=== PATIENT | male | born 1955 | race Caucasian/White ===

== ENCOUNTER 2018-09-20 05:32 | Inpatient (IN) ==
[2018-09-15 13:21] LABS: Basophils % 0.5 % (0.0-0.8); Eosinophils # 0.2 10*3/uL (0.0-0.87); Eosinophils % 2.6 % (0.00-10.9); Hematocrit 44.8 VOL% (42.0-52.0); Hemoglobin 14.9 GM/DL (14.0-18.0); Immature Granulocytes % 0.2 %; Immature Granulocytes Absolute 0.02 #; Mean Corpuscular HGB Conc 33.3 GM/DL (32-36); Mean Corpuscular Hemoglobin 29 PG (27-34); Mean Corpuscular Volume 88.4 FL (87-102); Mean Platelet Volume 9.2 FL (9.6-12.0); Monocytes # 0.5 10*3/uL (0.11-0.8); Monocytes % 6.6 % (1.7-12.7); Neutrophils # 5.3 10*3/uL (1.4-7.4); Neutrophils % 65.1 % (38.7-73.9); Platelet Count 204 T/CUMM (130-400); Red Blood Count 5.07 MC/CUMM (3.8-5.5); Red Cell Distribution Width 13.2 % (9.3-17.3); White Blood Count 8.1 T/CUMM (4-12)
[2018-09-15 13:32] LABS: INR 0.9; PT Patient Result 9.9 SECS; Partial Thromboplastin Time 25.8 SECS (0-40)
[2018-09-15 14:01] LABS: Albumin 3.5 G/DL (3.4-5.0); Bilirubin,Total 0.6 MG/DL (0.2-1.0); Potassium 4.4 MMOL/L (3.5-5.1); Total Protein 7.3 G/DL (6.4-8.3)
[2018-09-15 14:21] LABS: Apearance,Urine CLEAR (Clear); Bilirubin,Urine Negative (Negative); Blood, Urine Negative (Negative); Glucose,Urine (UA) 50 mg/dL (Negative); Hyaline Casts,Urine 7 /LPF (0-3); Ketones,Urine Negative (Negative); Mucus,Urine Occasional /LPF (Occasional); Nitrite,Urine Negative (Negative); Protein,Urine 30 MG/DL; RBC,Urine <1 /HPF (0-4); Squamous Epithelial Cell,Urine Occasional /HPF (0-10); Urine Color Yellow (Yellow); Urine Specific Gravity 1.009 (1.001-1.035); Urine Urobilinogen < 2.0 EU/DL (0.2-1.0); WBC,Urine <1 /HPF (0-6)
[2018-09-20] MEDS ORDERED: VANCOMYCIN 1,000 MG VIAL ONE (05:55)
[2018-09-20] MEDS ORDERED: ceFAZolin 1,000 MG VIAL ONE ×2 (05:55→09:11)
[2018-09-20] MEDS ORDERED: ceFAZolin 1,000 MG in SYRINGE 1 EACH IV ONE (06:00)
[2018-09-20] MEDS ORDERED: VANCOMYCIN INJ 1,000 MG in SODIUM CHLORIDE 0.9% 250 ML IV ONE (06:00)
[2018-09-20] MEDS: LACTATED RINGERS 1,000 ML IV SCH ×3 (06:40→18:27)
[2018-09-20] MEDS ORDERED: BUPIVACAINE SPINAL 0.75% 2 ML AMP SPINAL ONE (07:46)
[2018-09-20] MEDS ORDERED: ROPIVACAINE 0.5% 30 ML VIAL ONE (07:46)
[2018-09-20] MEDS ORDERED: EPINEPHrine 1 MG/ML VIAL ONE (07:51)
[2018-09-20] MEDS ORDERED: ONDANSETRON 4 MG/2 ML VIAL IV PRN ×2 (08:52→11:22)
[2018-09-20] MEDS ORDERED: MORPHINE 4 MG/1 ML VIAL IV PRN ×2 (08:52)
[2018-09-20] MEDS ORDERED: MAGNESIUM HYDROXIDE SUSP 30 ML UDCUP PO PRN (08:52)
[2018-09-20] MEDS ORDERED: ZALEPLON 5 MG CAPSULE PO PRN (08:52)
[2018-09-20] MEDS ORDERED: oxyCODONE IR 5 MG TABLET PO PRN (08:52)
[2018-09-20] MEDS ORDERED: oxyCODONE/ACETAMINOPHEN 5-325 MG TABLET PO PRN ×2 (08:52)
[2018-09-20] MEDS ORDERED: diphenhydrAMINE CAP 25 MG CAPSULE PO PRN (08:52)
[2018-09-20] MEDS ORDERED: BACITRACIN OINT 0.9 GM PACK TOP ONE (09:11)
[2018-09-20 10:29] LABS: Apearance,Urine CLEAR (Clear); Bilirubin,Urine Negative (Negative); Blood, Urine Negative (Negative); Glucose,Urine (UA) 50 mg/dL (Negative); Ketones,Urine Negative (Negative); Mucus,Urine Occasional /LPF (Occasional); Nitrite,Urine Negative (Negative); Protein,Urine 100 MG/DL; RBC,Urine <1 /HPF (0-4); Urine Color Yellow (Yellow); Urine Specific Gravity 1.019 (1.001-1.035); Urine Urobilinogen < 2.0 EU/DL (0.2-1.0)
[2018-09-20] MEDS ORDERED: KETAMINE 500 MG/10 ML VIAL ONE (10:51)
[2018-09-20] MEDS ORDERED: TRANEXAMIC ACID 1,000 MG/10 ML VIAL ONE (10:51)
[2018-09-20] MEDS ORDERED: fentaNYL 100 MCG/2 ML VIAL ONE (10:51)
[2018-09-20] MEDS ORDERED: MIDAZOLAM 2 MG/2 ML VIAL ONE ×2 (10:51)
[2018-09-20] MEDS ORDERED: PHENYLEPHRINE 1 MG/10 ML SYRINGE IV ONE (10:52)
[2018-09-20] MEDS ORDERED: PROPOFOL 200 MG/20 ML VIAL IV ONE (10:52)
[2018-09-20] MEDS ORDERED: LACTATED RINGERS 1,000 ML IV ONE (10:52)
[2018-09-20] MEDS ORDERED: SODIUM CHLORIDE 0.9% 200 ML IV ONE (10:52)
[2018-09-20] MEDS ORDERED: MORPHINE 10 MG/1 ML VIAL ONE (11:25)
[2018-09-20] MEDS ORDERED: ONDANSETRON 4 MG/2 ML VIAL ONE (11:25)
[2018-09-20] MEDS: MORPHINE 10 MG/1 ML VIAL IV PRN ×2 (11:40→11:41)
[2018-09-20] MEDS: ceFAZolin 2,000 MG in PREMIX 1 EACH IV SCH ×2 (13:29→20:45)
[2018-09-20] MEDS: oxyCODONE IR 5 MG TABLET PO PRN ×2 (13:30→18:27)
[2018-09-20] MEDS: KETOROLAC 30 MG/1 ML VIAL IV SCH ×2 (13:31→20:50)
[2018-09-20] MEDS: ACETAMINOPHEN 500 MG TABLET PO SCH ×2 (13:32→20:54)
[2018-09-20] MEDS: FUROSEMIDE 80 MG TABLET PO SCH (13:32)
[2018-09-20] MEDS: DOCUSATE SODIUM 100 MG CAPSULE PO SCH ×2 (13:33→20:54)
[2018-09-20] MEDS: CARVEDILOL 6.25 MG TABLET PO SCH ×2 (13:33→20:54)
[2018-09-20] MEDS ORDERED: ATORVASTATIN 20 MG TABLET PO SCH (21:00)
[2018-09-20] MEDS ORDERED: amLODIPine 5 MG TABLET PO SCH (21:00)
[2018-09-20] MEDS ORDERED: INSULIN GLARGINE 100 UNIT/ML SUBCUT SCH (21:00)
[2018-09-21] MEDS: ACETAMINOPHEN 500 MG TABLET PO SCH ×2 (02:13→09:42)
[2018-09-21] MEDS: KETOROLAC 30 MG/1 ML VIAL IV SCH ×2 (02:14→09:46)
[2018-09-21] MEDS: LACTATED RINGERS 1,000 ML IV SCH ×2 (02:15→05:34)
[2018-09-21] MEDS ORDERED: FONDAPARINUX 2.5 MG/0.5 ML SYRINGE SUBCUT SCH (02:54)
[2018-09-21 05:53] LABS: Basophils % 0.4 % (0.0-0.8); Eosinophils # 0.2 10*3/uL (0.0-0.87); Hematocrit 38.2 VOL% (42.0-52.0); Hemoglobin 12.7 GM/DL (14.0-18.0); Immature Granulocytes % 0.5 %; Immature Granulocytes Absolute 0.04 #; Lymphocytes # 1.2 10*3/uL (1.4-4.0); Lymphocytes % 14.4 % (21.2-54.2); Mean Corpuscular HGB Conc 33.2 GM/DL (32-36); Mean Corpuscular Hemoglobin 30 PG (27-34); Mean Corpuscular Volume 89.5 FL (87-102); Mean Platelet Volume 9.7 FL (9.6-12.0); Monocytes # 0.7 10*3/uL (0.11-0.8); Monocytes % 8.2 % (1.7-12.7); Neutrophils # 6.2 10*3/uL (1.4-7.4); Neutrophils % 74.5 % (38.7-73.9); Platelet Count 148 T/CUMM (130-400); Red Blood Count 4.27 MC/CUMM (3.8-5.5); Red Cell Distribution Width 13.1 % (9.3-17.3); White Blood Count 8.3 T/CUMM (4-12)
[2018-09-21 06:00] LABS: Calcium 7.4 MG/DL (8.5-10.1); Osmolality,Calculated 280.5 MOS/KG (273-304); Potassium 4.2 MMOL/L (3.5-5.1)
[2018-09-21] MEDS ORDERED: ASPIRIN EC 81 MG TABLET PO SCH (09:00)
[2018-09-21] MEDS ORDERED: ACETAMINOPHEN 500 MG TABLET PO SCH (09:30)
[2018-09-21] MEDS ORDERED: KETOROLAC 30 MG/1 ML VIAL IV SCH (09:30)
[2018-09-21] MEDS: CARVEDILOL 6.25 MG TABLET PO SCH (09:44)
[2018-09-21] MEDS: FUROSEMIDE 80 MG TABLET PO SCH (09:44)
[2018-09-21] MEDS: DOCUSATE SODIUM 100 MG CAPSULE PO SCH (09:44)
[2018-09-21 11:28] VITALS: BP 143/101
[2018-09-21] MEDS ORDERED: CELECOXIB 200 MG CAPSULE PO SCH (14:53)
== END 2018-09-21 15:40 | disposition home health service (06) | DRG 468 ==
LOC: N.OR 05:32 → N.SDSINP 05:33 → N.3E 08:52
PROVIDERS: ADMIT Orthopaedic Surgery; ATTEND Orthopaedic Surgery

== ENCOUNTER 2021-03-10 16:53 | Inpatient (IN) ==
[2021-03-10] MEDS ORDERED: SODIUM CHLORIDE 0.9% 500 ML IV STA (17:10)
[2021-03-10 17:20] LABS: Basophils # 0.1 10*3/uL (0.0-0.2); Basophils % 0.4 % (0.0-0.8); Hematocrit 53.7 VOL% (42.0-52.0); Hemoglobin 17.6 GM/DL (14.0-18.0); Immature Granulocytes Absolute 0.14 #; Lymphocytes # 0.2 10*3/uL (1.4-4.0); Lymphocytes % 1.1 % (21.2-54.2); Mean Corpuscular HGB Conc 32.8 GM/DL (32-36); Mean Corpuscular Volume 88.2 FL (87-102); Mean Platelet Volume 10.1 FL (9.6-12.0); Monocytes % 3.6 % (1.7-12.7); Neutrophils % 93.9 % (38.7-73.9); Platelet Count 122 T/CUMM (130-400); Red Blood Count 6.09 MC/CUMM (3.8-5.5); Red Cell Distribution Width 13.9 % (9.3-17.3); White Blood Count 14.2 T/CUMM (4-12)
[2021-03-10 17:39] LABS: Band Neutrophils 5 % (0-10); Metamyelocytes 2 %; Microcytosis Slight; Segmented Neutrophils 93 % (50-85); Total Cells Counted 100
[2021-03-10 17:40] LABS: Platelet Estimate Decreased; Polychromasia Slight
[2021-03-10 17:45] LABS: Albumin 3.2 G/DL (3.4-5.0); Bilirubin,Total 3.6 MG/DL (0.2-1.0); Calcium 9.3 MG/DL (8.5-10.1); Osmolality,Calculated 280.2 MOS/KG (273-304); Potassium 4.2 MMOL/L (3.5-5.1)
[2021-03-10 17:50] LABS: Amorphous Crystals,Urine Occasional /HPF (Few); Bilirubin,Urine Negative (Negative); Blood, Urine Large mg/dL (Negative); Glucose,Urine (UA) >=500 mg/dL (Negative); Ketones,Urine Negative (Negative); Nitrite,Urine Negative (Negative); Protein,Urine 100 MG/DL; RBC,Urine 18 /HPF (0-4); Squamous Epithelial Cell,Urine Occasional /HPF (0-10); Urine Appearance CLOUDY (Clear); Urine Color Amber (Yellow); Urine Specific Gravity 1.026 (1.001-1.035)
[2021-03-10 17:53] LABS: Barbiturates Screen,Urine Negative (Negative); Benzodiazepines Screen,Urine Negative (Negative); Cannabinoid Screen,Urine Negative (Negative); Opiate Screen,Urine Negative (Negative); Phencyclidine Screen,Urine Negative (Negative)
[2021-03-10] MEDS ORDERED: LACTATED RINGERS IV ONE (19:09)
[2021-03-10] MEDS ORDERED: ALBUTEROL 2.5 MG/3 ML NEB RESP TX PRN (19:09)
[2021-03-10] MEDS ORDERED: ONDANSETRON 4 MG/2 ML VIAL IV PRN (19:09)
[2021-03-10] MEDS ORDERED: GLUCAGON 1 MG VIAL IM PRN (19:17)
[2021-03-10] MEDS ORDERED: DEXTROSE 50% 25 GM/50 ML VIAL IV PRN (19:17)
[2021-03-10] MEDS ORDERED: LEVOFLOXACIN INJ 750 MG/150 ML PREMIX IV SCH (19:30)
[2021-03-10 20:37] LABS: ABG Base Excess -0.7 MMOL/L (-2.5-2.5); ABG HCO3 23.8 MMOL/L (20-26); ABG Oxygen Saturation 98.3 % (95-100); ABG PCO2 27.3 MM HG (35-48); ABG PO2 98.3 MM HG (80-95); Allen Test Positive
[2021-03-10] MEDS ORDERED: ENOXAPARIN 30 MG/0.3 ML SYRINGE SUBCUT SCH (21:00)
[2021-03-10] MEDS: cefTRIAXone 2,000 MG in SODIUM CHLORIDE 0.9% 100 ML IV SCH (21:20)
[2021-03-10] MEDS: PANTOPRAZOLE 40 MG VIAL IV SCH (21:20)
[2021-03-10] MEDS ORDERED: LACTATED RINGERS 3,000 ML IV ONE (21:30)
[2021-03-10] MEDS ORDERED: ACETAMINOPHEN 650 MG SUPP RECTAL ONE ×2 (21:30→21:44)
[2021-03-10] MEDS: DEXTROSE 5% LACTATED RINGERS 1,000 ML IV SCH (22:40)
[2021-03-10] MEDS ORDERED: VANCOMYCIN INJ 2,000 MG in SODIUM CHLORIDE 0.9% 500 ML IV SCH (23:00)
[2021-03-10 23:11] LABS: ABG Base Excess -1.2 MMOL/L (-2.5-2.5); ABG HCO3 23.4 MMOL/L (20-26); ABG Oxygen Saturation 97.3 % (95-100); ABG PCO2 28.7 MM HG (35-48); ABG PH 7.471 (7.35-7.45); ABG PO2 85.2 MM HG (80-95); ABG TCO2 17.5 MMOL/L (23-27)
[2021-03-10] MEDS ORDERED: ETOMIDATE 20 MG/10 ML VIAL IV ONE ×2 (23:22→23:29)
[2021-03-10] MEDS ORDERED: ROCURONIUM 100 MG/10 ML VIAL IV ONE ×2 (23:23→23:29)
[2021-03-10] MEDS ORDERED: ENOXAPARIN 120 MG/0.8 ML SYRINGE SUBCUT ONE (23:30)
[2021-03-10] MEDS ORDERED: METOPROLOL TARTRATE 5 MG/5 ML VIAL IV ONE ×2 (23:41→23:48)
[2021-03-11] MEDS: INSULIN LISPRO 100 UNIT/ML SUBCUT SCH ×6 (00:22→20:44)
[2021-03-11 00:24] LABS: ABG Base Excess -3.6 MMOL/L (-2.5-2.5); ABG Oxygen Saturation 98.9 % (95-100); ABG PCO2 46.9 MM HG (35-48); ABG PH 7.308 (7.35-7.45); ABG PO2 175.9 MM HG (80-95); ABG TCO2 24.4 MMOL/L (23-27)
[2021-03-11 00:44] LABS: Albumin 2.2 G/DL (3.4-5.0); Bilirubin,Total 2.9 MG/DL (0.2-1.0); Calcium 7.3 MG/DL (8.5-10.1); Osmolality,Calculated 289.7 MOS/KG (273-304); Potassium 3.8 MMOL/L (3.5-5.1)
[2021-03-11] MEDS ORDERED: MAGNESIUM SULF RIDER 2 GM/50 ML PREMIX IV PRN (00:58)
[2021-03-11] MEDS ORDERED: MAGNESIUM SULF RIDER 4 GM/100 ML PREMIX IV PRN (00:58)
[2021-03-11] MEDS: DEXTROSE 5% LACTATED RINGERS 1,000 ML IV SCH ×3 (02:36→18:08)
[2021-03-11] MEDS: PHENYLEPHRINE DRIP 40 MG/250 ML PREMIX IV PRN ×6 (03:40→21:09)
[2021-03-11 05:08] LABS: Basophils # 0.1 10*3/uL (0.0-0.2); Basophils % 0.3 % (0.0-0.8); Hematocrit 51.5 VOL% (42.0-52.0); Hemoglobin 16.4 GM/DL (14.0-18.0); Immature Granulocytes % 2.2 %; Lymphocytes # 0.4 10*3/uL (1.4-4.0); Mean Corpuscular HGB Conc 31.8 GM/DL (32-36); Mean Corpuscular Volume 90.7 FL (87-102); Mean Platelet Volume 11.3 FL (9.6-12.0); Monocytes % 4.2 % (1.7-12.7); Neutrophils % 91.3 % (38.7-73.9); Red Blood Count 5.68 MC/CUMM (3.8-5.5); Red Cell Distribution Width 14.2 % (9.3-17.3)
[2021-03-11 05:15] LABS: INR 1.3
[2021-03-11 05:37] LABS: Albumin 2.3 G/DL (3.4-5.0); Bilirubin,Total 3.8 MG/DL (0.2-1.0); Calcium 8.6 MG/DL (8.5-10.1); Osmolality,Calculated 279.8 MOS/KG (273-304); Potassium 4.6 MMOL/L (3.5-5.1); Total Protein 6.2 G/DL (6.4-8.2)
[2021-03-11 05:45] LABS: Platelet Count 87 T/CUMM (130-400); White Blood Count 18.6 T/CUMM (4-12)
[2021-03-11 05:51] LABS: Band Neutrophils 11 % (0-10); Lymphocytes 3 % (20-55); Platelet Estimate Decreased; Segmented Neutrophils 82 % (50-85); Total Cells Counted 100
[2021-03-11] MEDS ORDERED: ACYCLOVIR INJ 800 MG in SODIUM CHLORIDE 0.9% 250 ML IV SCH (09:00)
[2021-03-11] MEDS: INSULIN GLARGINE 100 UNIT/ML SUBCUT SCH (09:40)
[2021-03-11] MEDS: cefTRIAXone 2,000 MG in SODIUM CHLORIDE 0.9% 100 ML IV SCH ×2 (09:40→21:17)
[2021-03-11] MEDS: RIFAMPIN INJ 600 MG in SODIUM CHLORIDE 0.9% 100 ML IV SCH (12:36)
[2021-03-11] MEDS: PHENYLEPHRINE INJ 80 MG in SODIUM CHLORIDE 0.9% 242 ML IV PRN ×2 (13:39→18:05)
[2021-03-11] MEDS ORDERED: MIDAZOLAM 100 MG in SODIUM CHLORIDE 0.9% 80 ML IV PRN (18:00)
[2021-03-11] MEDS ORDERED: ACETAMINOPHEN 325 MG TABLET ONE (18:02)
[2021-03-11] MEDS: ACETAMINOPHEN 325 MG TABLET PO PRN (18:40)
[2021-03-11] MEDS: PANTOPRAZOLE 40 MG VIAL IV SCH (20:45)
[2021-03-11] MEDS ORDERED: PHENYLEPHRINE INJ 160 MG in SODIUM CHLORIDE 0.9% 234 ML IV PRN (21:37)
[2021-03-11 21:56] LABS: ABG Base Excess -4.8 MMOL/L (-2.5-2.5); ABG HCO3 20.6 MMOL/L (20-26); ABG Oxygen Saturation 99.4 % (95-100); ABG PCO2 32.2 MM HG (35-48); ABG PH 7.384 (7.35-7.45); ABG TCO2 16.3 MMOL/L (23-27)
[2021-03-11 22:09] LABS: Albumin 1.9 G/DL (3.4-5.0); Bilirubin,Total 4.3 MG/DL (0.2-1.0); Calcium 8.1 MG/DL (8.5-10.1); Potassium 4.2 MMOL/L (3.5-5.1); Total Protein 5.5 G/DL (6.4-8.2)
[2021-03-11] MEDS: PHENYLEPHRINE INJ 80 MG in SODIUM CHLORIDE 0.9% 492 ML IV PRN (22:39)
[2021-03-11] MEDS ORDERED: ALBUMIN 25% 25 GM/100 ML VIAL IV ONE (22:48)
[2021-03-12] MEDS ORDERED: ENOXAPARIN 150 MG/ML SYRINGE SUBCUT SCH
[2021-03-12] MEDS: ACETAMINOPHEN 325 MG TABLET PO PRN (00:30)
[2021-03-12] MEDS: INSULIN LISPRO 100 UNIT/ML SUBCUT SCH ×6 (00:46→20:14)
[2021-03-12] MEDS: PHENYLEPHRINE INJ 80 MG in SODIUM CHLORIDE 0.9% 492 ML IV PRN ×6 (01:18→21:01)
[2021-03-12] MEDS: DEXTROSE 5% LACTATED RINGERS 1,000 ML IV SCH ×3 (01:45→18:06)
[2021-03-12 06:10] LABS: ABG HCO3 19.7 MMOL/L (20-26); ABG Oxygen Saturation 99.2 % (95-100); ABG PCO2 35.5 MM HG (35-48); ABG PH 7.361 (7.35-7.45); ABG PO2 206.7 MM HG (80-95); ABG TCO2 20.7 MMOL/L (23-27)
[2021-03-12 06:18] LABS: Basophils # 0.1 10*3/uL (0.0-0.2); Basophils % 0.2 % (0.0-0.8); Eosinophils % 0.1 % (0.00-10.9); Hematocrit 43.8 VOL% (42.0-52.0); Hemoglobin 14.4 GM/DL (14.0-18.0); Immature Granulocytes % 0.8 %; Immature Granulocytes Absolute 0.17 #; Lymphocytes # 0.8 10*3/uL (1.4-4.0); Lymphocytes % 4.2 % (21.2-54.2); Mean Corpuscular HGB Conc 32.9 GM/DL (32-36); Mean Corpuscular Volume 87.6 FL (87-102); Mean Platelet Volume 11.8 FL (9.6-12.0); Monocytes % 8.1 % (1.7-12.7); Neutrophils % 86.6 % (38.7-73.9); Platelet Count 70 T/CUMM (130-400); Red Cell Distribution Width 14.8 % (9.3-17.3); White Blood Count 20.1 T/CUMM (4-12)
[2021-03-12 06:36] LABS: Band Neutrophils 2 % (0-10); Lymphocytes 2 % (20-55); Platelet Estimate Decreased; Segmented Neutrophils 91 % (50-85); Total Cells Counted 100
[2021-03-12 07:01] LABS: Albumin 1.9 G/DL (3.4-5.0); Bilirubin,Total 3.7 MG/DL (0.2-1.0); Calcium 7.3 MG/DL (8.5-10.1); Osmolality,Calculated 293.7 MOS/KG (273-304); Potassium 3.8 MMOL/L (3.5-5.1); Total Protein 4.9 G/DL (6.4-8.2)
[2021-03-12 07:03] LABS: High Sensitive Troponin I* 9606.2 ng/L (0-78)
[2021-03-12] MEDS: cefTRIAXone 2,000 MG in SODIUM CHLORIDE 0.9% 100 ML IV SCH ×2 (08:22→20:14)
[2021-03-12] MEDS: FAMOTIDINE 20 MG/2 ML VIAL IV SCH (08:23)
[2021-03-12] MEDS: INSULIN GLARGINE 100 UNIT/ML SUBCUT SCH (08:23)
[2021-03-12] MEDS ORDERED: VANCOMYCIN INJ 2,000 MG in SODIUM CHLORIDE 0.9% 500 ML IV ONE (08:30)
[2021-03-12] MEDS ORDERED: POTASSIUM PHOSPHATE 20 MMOL in SODIUM CHLORIDE 0.9% 100 ML IV ONE (10:00)
[2021-03-12] MEDS: RIFAMPIN INJ 600 MG in SODIUM CHLORIDE 0.9% 100 ML IV SCH (12:30)
[2021-03-12] MEDS ORDERED: LEVOFLOXACIN INJ 750 MG/150 ML PREMIX IV SCH (20:00)
[2021-03-13] MEDS: INSULIN LISPRO 100 UNIT/ML SUBCUT SCH ×7 (00:32→23:30)
[2021-03-13] MEDS: DEXTROSE 5% LACTATED RINGERS 1,000 ML IV SCH ×3 (01:10→22:05)
[2021-03-13 03:36] LABS: ABG Base Excess -6.8 MMOL/L (-2.5-2.5); ABG HCO3 18.6 MMOL/L (20-26); ABG PH 7.319 (7.35-7.45); ABG PO2 207.4 MM HG (80-95); ABG TCO2 19.7 MMOL/L (23-27)
[2021-03-13 03:38] LABS: Basophils % 0.2 % (0.0-0.8); Eosinophils % 0.3 % (0.00-10.9); Hematocrit 39.7 VOL% (42.0-52.0); Immature Granulocytes % 0.7 %; Lymphocytes # 0.7 10*3/uL (1.4-4.0); Lymphocytes % 4.8 % (21.2-54.2); Mean Corpuscular HGB Conc 32.7 GM/DL (32-36); Mean Corpuscular Volume 88.6 FL (87-102); Mean Platelet Volume 12.3 FL (9.6-12.0); Monocytes % 8.6 % (1.7-12.7); Neutrophils % 85.4 % (38.7-73.9); Red Blood Count 4.48 MC/CUMM (3.8-5.5); Red Cell Distribution Width 15.2 % (9.3-17.3)
[2021-03-13 03:39] LABS: Platelet Count 46 T/CUMM (130-400); White Blood Count 13.8 T/CUMM (4-12)
[2021-03-13 03:52] LABS: Albumin 1.8 G/DL (3.4-5.0); Bilirubin,Total 3.1 MG/DL (0.2-1.0); Calcium 7.8 MG/DL (8.5-10.1); Osmolality,Calculated 294.8 MOS/KG (273-304); Potassium 4.6 MMOL/L (3.5-5.1); Total Protein 5.1 G/DL (6.4-8.2)
[2021-03-13 04:16] LABS: Band Neutrophils 1 % (0-10); Eosinophils 1 % (0-10); Lymphocytes 6 % (20-55); Segmented Neutrophils 81 % (50-85)
[2021-03-13 04:17] LABS: Burr Cells 3+; Platelet Estimate Decreased
[2021-03-13 04:18] LABS: Total Cells Counted 100
[2021-03-13] MEDS: PHENYLEPHRINE INJ 80 MG in SODIUM CHLORIDE 0.9% 492 ML IV PRN ×3 (05:02→20:53)
[2021-03-13] MEDS ORDERED: INSULIN GLARGINE 100 UNIT/ML SUBCUT ONE (10:12)
[2021-03-13] MEDS: INSULIN GLARGINE 100 UNIT/ML SUBCUT SCH (10:13)
[2021-03-13] MEDS: cefTRIAXone 2,000 MG in SODIUM CHLORIDE 0.9% 100 ML IV SCH (10:52)
[2021-03-13] MEDS: FAMOTIDINE 20 MG/2 ML VIAL IV SCH (10:53)
[2021-03-13] MEDS: RIFAMPIN INJ 600 MG in SODIUM CHLORIDE 0.9% 100 ML IV SCH ×2 (11:50→13:19)
[2021-03-13 13:05] LABS: Glucose,CSF 94 MG/DL (40-70)
[2021-03-13 14:08] LABS: Lymphocytes,CSF 5 %; Monocytes,CSF 2 %; Neutrophils,CSF 93 %; White Blood Cell,CSF 212 C/CUMM
[2021-03-13 14:09] LABS: Appearance,CSF Clear
[2021-03-13] MEDS: CLINDAMYCIN INJ 600 MG/50 ML PREMIX IV SCH ×2 (15:32→21:15)
[2021-03-13 15:59] LABS: Hepatitis B Core IgM Quant 0.18 Index; Hepatitis B Surface Ag Quant < 0.10 Index; Hepatitis B Surface Ag Result Non-Reactive (NonReactive); Hepatitis C Virus Ab Quant 0.16 Index; Hepatitis C Virus Ab Result Non-Reactive (NonReactive)
[2021-03-13] MEDS: ASPIRIN CHEW 81 MG TABLET PO SCH (16:59)
[2021-03-13] MEDS ORDERED: HEPARIN 10,000 UNIT/10 ML VIAL IV SCH (22:00)
[2021-03-14] MEDS: INSULIN LISPRO 100 UNIT/ML SUBCUT SCH ×3 (03:41→17:13)
[2021-03-14 04:09] LABS: ABG HCO3 20.3 MMOL/L (20-26); ABG Oxygen Saturation 99.2 % (95-100); ABG PH 7.264 (7.35-7.45)
[2021-03-14 04:30] LABS: Basophils % 0.2 % (0.0-0.8); Eosinophils # 0.1 10*3/uL (0.0-0.87); Eosinophils % 1.1 % (0.00-10.9); Hematocrit 41.6 VOL% (42.0-52.0); Hemoglobin 13.6 GM/DL (14.0-18.0); Immature Granulocytes % 1.9 %; Immature Granulocytes Absolute 0.22 #; Lymphocytes # 0.7 10*3/uL (1.4-4.0); Lymphocytes % 6.4 % (21.2-54.2); Mean Corpuscular HGB Conc 32.7 GM/DL (32-36); Mean Corpuscular Volume 89.7 FL (87-102); Mean Platelet Volume 13.6 FL (9.6-12.0); Monocytes % 11.9 % (1.7-12.7); Neutrophils % 78.5 % (38.7-73.9); Red Blood Count 4.64 MC/CUMM (3.8-5.5); Red Cell Distribution Width 15.8 % (9.3-17.3); White Blood Count 11.5 T/CUMM (4-12)
[2021-03-14 04:32] LABS: Platelet Count 36 T/CUMM (130-400)
[2021-03-14 05:01] LABS: Eosinophils 3 % (0-10); Lymphocytes 9 % (20-55); Platelet Estimate Decreased; Segmented Neutrophils 82 % (50-85); Total Cells Counted 100
[2021-03-14 05:07] LABS: Calcium 7.5 MG/DL (8.5-10.1); Osmolality,Calculated 296.5 MOS/KG (273-304); Potassium 4.9 MMOL/L (3.5-5.1)
[2021-03-14 05:09] LABS: Albumin 1.8 G/DL (3.4-5.0); Bilirubin,Total 2.8 MG/DL (0.2-1.0); Calcium 7.6 MG/DL (8.5-10.1); Osmolality,Calculated 294.7 MOS/KG (273-304); Potassium 4.8 MMOL/L (3.5-5.1); Total Protein 5.3 G/DL (6.4-8.2)
[2021-03-14] MEDS: CLINDAMYCIN INJ 600 MG/50 ML PREMIX IV SCH ×4 (05:30→21:14)
[2021-03-14] MEDS: DEXTROSE 5% LACTATED RINGERS 1,000 ML IV SCH (06:11)
[2021-03-14] MEDS: FAMOTIDINE 20 MG/2 ML VIAL IV SCH (08:54)
[2021-03-14] MEDS: ASPIRIN CHEW 81 MG TABLET PO SCH (08:54)
[2021-03-14] MEDS: INSULIN GLARGINE 100 UNIT/ML SUBCUT SCH (08:54)
[2021-03-14] MEDS: PHENYLEPHRINE INJ 80 MG in SODIUM CHLORIDE 0.9% 492 ML IV PRN (10:15)
[2021-03-14] MEDS: RIFAMPIN INJ 600 MG in SODIUM CHLORIDE 0.9% 100 ML IV SCH (12:06)
[2021-03-15] MEDS: INSULIN LISPRO 100 UNIT/ML SUBCUT SCH ×4 (00:06→18:15)
[2021-03-15] MEDS: PHENYLEPHRINE INJ 80 MG in SODIUM CHLORIDE 0.9% 492 ML IV PRN (00:08)
[2021-03-15 04:52] LABS: ABG Base Excess -5.5 MMOL/L (-2.5-2.5); ABG Oxygen Saturation 99.2 % (95-100); ABG PCO2 43.9 MM HG (35-48); ABG PH 7.291 (7.35-7.45); ABG TCO2 18.6 MMOL/L (23-27)
[2021-03-15 04:53] LABS: Basophils % 0.3 % (0.0-0.8); Eosinophils # 0.2 10*3/uL (0.0-0.87); Eosinophils % 1.5 % (0.00-10.9); Hematocrit 41.7 VOL% (42.0-52.0); Hemoglobin 13.3 GM/DL (14.0-18.0); Immature Granulocytes % 1.5 %; Immature Granulocytes Absolute 0.19 #; Lymphocytes # 0.7 10*3/uL (1.4-4.0); Lymphocytes % 5.9 % (21.2-54.2); Mean Corpuscular HGB Conc 31.9 GM/DL (32-36); Mean Corpuscular Volume 90.3 FL (87-102); Mean Platelet Volume 12.2 FL (9.6-12.0); Monocytes % 11.6 % (1.7-12.7); Neutrophils % 79.2 % (38.7-73.9); Red Blood Count 4.62 MC/CUMM (3.8-5.5); Red Cell Distribution Width 15.9 % (9.3-17.3); White Blood Count 12.6 T/CUMM (4-12)
[2021-03-15 04:56] LABS: Platelet Count 62 T/CUMM (130-400)
[2021-03-15 05:08] LABS: Albumin 1.6 G/DL (3.4-5.0); Bilirubin,Total 2.6 MG/DL (0.2-1.0); Calcium 7.8 MG/DL (8.5-10.1); Osmolality,Calculated 296.7 MOS/KG (273-304); Potassium 4.9 MMOL/L (3.5-5.1); Total Protein 5.3 G/DL (6.4-8.2)
[2021-03-15 05:13] LABS: Eosinophils 1 % (0-10); Lymphocytes 8 % (20-55); Platelet Estimate Decreased; Segmented Neutrophils 84 % (50-85); Total Cells Counted 100
[2021-03-15] MEDS: CLINDAMYCIN INJ 600 MG/50 ML PREMIX IV SCH ×3 (05:57→21:20)
[2021-03-15] MEDS: INSULIN GLARGINE 100 UNIT/ML SUBCUT SCH (09:08)
[2021-03-15] MEDS: ASPIRIN CHEW 81 MG TABLET PO SCH (09:08)
[2021-03-15] MEDS: FAMOTIDINE 20 MG/2 ML VIAL IV SCH (09:09)
[2021-03-15] MEDS: RIFAMPIN INJ 600 MG in SODIUM CHLORIDE 0.9% 100 ML IV SCH (12:02)
[2021-03-15] MEDS: ACETAMINOPHEN 325 MG TABLET PO PRN (19:51)
[2021-03-15] MEDS: fentaNYL 100 MCG/2 ML VIAL IV PRN (22:13)
[2021-03-16] MEDS: INSULIN LISPRO 100 UNIT/ML SUBCUT SCH ×4 (00:32→17:52)
[2021-03-16 04:14] LABS: ABG Base Excess -7.1 MMOL/L (-2.5-2.5); ABG HCO3 18.7 MMOL/L (20-26); ABG Oxygen Saturation 98.2 % (95-100); ABG PCO2 40.9 MM HG (35-48); ABG PH 7.283 (7.35-7.45); ABG TCO2 17.2 MMOL/L (23-27)
[2021-03-16 04:22] LABS: Basophils % 0.3 % (0.0-0.8); Eosinophils # 0.1 10*3/uL (0.0-0.87); Eosinophils % 0.8 % (0.00-10.9); Hematocrit 39.3 VOL% (42.0-52.0); Immature Granulocytes % 1.2 %; Immature Granulocytes Absolute 0.15 #; Lymphocytes # 0.6 10*3/uL (1.4-4.0); Lymphocytes % 5.1 % (21.2-54.2); Mean Corpuscular HGB Conc 33.1 GM/DL (32-36); Mean Corpuscular Volume 88.3 FL (87-102); Mean Platelet Volume 11.8 FL (9.6-12.0); Monocytes % 8.7 % (1.7-12.7); Neutrophils % 83.9 % (38.7-73.9); Platelet Count 82 T/CUMM (130-400); Red Blood Count 4.45 MC/CUMM (3.8-5.5); Red Cell Distribution Width 15.7 % (9.3-17.3); White Blood Count 12.3 T/CUMM (4-12)
[2021-03-16 04:50] LABS: Calcium 7.7 MG/DL (8.5-10.1); Osmolality,Calculated 309.8 MOS/KG (273-304); Potassium 5.5 MMOL/L (3.5-5.1)
[2021-03-16 04:55] LABS: Lymphocytes 3 % (20-55); Platelet Estimate Decreased; Segmented Neutrophils 87 % (50-85); Total Cells Counted 100
[2021-03-16] MEDS: CLINDAMYCIN INJ 600 MG/50 ML PREMIX IV SCH ×3 (05:35→21:08)
[2021-03-16] MEDS: fentaNYL 100 MCG/2 ML VIAL IV PRN (05:56)
[2021-03-16] MEDS: ASPIRIN CHEW 81 MG TABLET PO SCH (08:01)
[2021-03-16] MEDS: FAMOTIDINE 20 MG/2 ML VIAL IV SCH (08:01)
[2021-03-16] MEDS: INSULIN GLARGINE 100 UNIT/ML SUBCUT SCH (08:01)
[2021-03-16] MEDS ORDERED: VANCOMYCIN INJ 1,250 MG in SODIUM CHLORIDE 0.9% 250 ML IV PRN (09:02)
[2021-03-16] MEDS: RIFAMPIN INJ 600 MG in SODIUM CHLORIDE 0.9% 100 ML IV SCH (12:23)
[2021-03-16] MEDS ORDERED: VANCOMYCIN INJ 1,250 MG in SODIUM CHLORIDE 0.9% 250 ML IV ONE (17:00)
[2021-03-16 20:56] LABS: Enterovirus PCR Source CSF
[2021-03-17] MEDS: INSULIN LISPRO 100 UNIT/ML SUBCUT SCH ×4 (00:25→18:06)
[2021-03-17 04:27] LABS: Allen Test Positive; Pt O2 Delivery Device Ventilator
[2021-03-17 04:30] LABS: ABG Base Excess -5.9 MMOL/L (-2.5-2.5); ABG HCO3 19.6 MMOL/L (20-26); ABG Oxygen Saturation 97.2 % (95-100); ABG PH 7.278 (7.35-7.45); ABG PO2 99.5 MM HG (80-95); ABG TCO2 18.6 MMOL/L (23-27)
[2021-03-17 05:03] LABS: Calcium 7.8 MG/DL (8.5-10.1); Potassium 5.6 MMOL/L (3.5-5.1)
[2021-03-17] MEDS: CLINDAMYCIN INJ 600 MG/50 ML PREMIX IV SCH (06:05)
[2021-03-17] MEDS: INSULIN GLARGINE 100 UNIT/ML SUBCUT SCH (09:22)
[2021-03-17] MEDS: ASPIRIN CHEW 81 MG TABLET PO SCH (09:22)
[2021-03-17] MEDS: FAMOTIDINE 20 MG/2 ML VIAL IV SCH (09:23)
[2021-03-17 10:48] LABS: M. Tuberculosis PCR Result Negative (Negative); M. Tuberculosis PCR Source CSF
[2021-03-17] MEDS: CEFTAROLINE 200 MG in SODIUM CHLORIDE 0.9% 100 ML IV SCH ×2 (10:57→23:05)
[2021-03-17 11:41] LABS: VDRL Spinal Fluid Negative (Negative)
[2021-03-17 12:26] LABS: West Nile Virus Ab, IgG, CSF Negative (Negative); West Nile Virus Ab, IgM, CSF Negative (Negative)
[2021-03-17 13:10] LABS: Adenovirus PCR Negative (Negative); Specimen Source CSF
[2021-03-17 14:07] LABS: CMV PCR Source CSF; Epstein-Barr Virus Result Negative (Negative); Epstein-Barr Virus Source CSF; Specimen Source CSF
[2021-03-17] MEDS ORDERED: SODIUM BICARBONATE 50 MEQ/50 ML VIAL IV ONE (14:47)
[2021-03-18] MEDS: INSULIN LISPRO 100 UNIT/ML SUBCUT SCH ×4 (00:20→18:45)
[2021-03-18 04:46] LABS: Allen Test Positive; Pt O2 Delivery Device Ventilator
[2021-03-18 04:50] LABS: ABG Base Excess -5.8 MMOL/L (-2.5-2.5); ABG HCO3 19.7 MMOL/L (20-26); ABG Oxygen Saturation 97.7 % (95-100); ABG PCO2 40.2 MM HG (35-48); ABG PH 7.309 (7.35-7.45); ABG TCO2 17.8 MMOL/L (23-27)
[2021-03-18 06:09] LABS: Basophils # 0.1 10*3/uL (0.0-0.2); Basophils % 0.3 % (0.0-0.8); Eosinophils # 0.2 10*3/uL (0.0-0.87); Hematocrit 39.3 VOL% (42.0-52.0); Hemoglobin 13.1 GM/DL (14.0-18.0); Immature Granulocytes % 1.2 %; Immature Granulocytes Absolute 0.22 #; Lymphocytes # 0.6 10*3/uL (1.4-4.0); Lymphocytes % 3.2 % (21.2-54.2); Mean Corpuscular HGB Conc 33.3 GM/DL (32-36); Mean Corpuscular Volume 87.9 FL (87-102); Mean Platelet Volume 11.7 FL (9.6-12.0); Monocytes % 5.3 % (1.7-12.7); Red Blood Count 4.47 MC/CUMM (3.8-5.5); Red Cell Distribution Width 15.3 % (9.3-17.3); White Blood Count 18.8 T/CUMM (4-12)
[2021-03-18 06:16] LABS: Platelet Count 195 T/CUMM (130-400)
[2021-03-18 06:29] LABS: Lymphocytes 6 % (20-55); Platelet Estimate Normal; Segmented Neutrophils 89 % (50-85); Total Cells Counted 100
[2021-03-18 06:32] LABS: Calcium 7.6 MG/DL (8.5-10.1); Osmolality,Calculated 317.8 MOS/KG (273-304); Potassium 5.4 MMOL/L (3.5-5.1)
[2021-03-18] MEDS: ASPIRIN CHEW 81 MG TABLET PO SCH (10:18)
[2021-03-18] MEDS: INSULIN GLARGINE 100 UNIT/ML SUBCUT SCH (10:19)
[2021-03-18] MEDS: FAMOTIDINE 20 MG/2 ML VIAL IV SCH (10:51)
[2021-03-18] MEDS ORDERED: VANCOMYCIN INJ 1,250 MG in SODIUM CHLORIDE 0.9% 250 ML IV ONE (13:00)
[2021-03-18] MEDS: CEFTAROLINE 200 MG in SODIUM CHLORIDE 0.9% 100 ML IV SCH ×2 (13:02→22:20)
[2021-03-19] MEDS: INSULIN LISPRO 100 UNIT/ML SUBCUT SCH ×4 (00:33→18:10)
[2021-03-19 03:10] LABS: ABG Base Excess -4.3 MMOL/L (-2.5-2.5); ABG HCO3 20.9 MMOL/L (20-26); ABG Oxygen Saturation 98.5 % (95-100); ABG PCO2 38.1 MM HG (35-48); ABG PH 7.348 (7.35-7.45); ABG TCO2 18.6 MMOL/L (23-27); Allen Test Positive; Pt O2 Delivery Device Ventilator
[2021-03-19 04:52] LABS: Basophils % 0.2 % (0.0-0.8); Eosinophils # 0.2 10*3/uL (0.0-0.87); Eosinophils % 0.9 % (0.00-10.9); Hematocrit 37.5 VOL% (42.0-52.0); Hemoglobin 12.2 GM/DL (14.0-18.0); Immature Granulocytes Absolute 0.17 #; Lymphocytes # 0.7 10*3/uL (1.4-4.0); Lymphocytes % 3.8 % (21.2-54.2); Mean Corpuscular HGB Conc 32.5 GM/DL (32-36); Mean Corpuscular Volume 88.9 FL (87-102); Mean Platelet Volume 11.5 FL (9.6-12.0); Neutrophils % 88.1 % (38.7-73.9); Platelet Count 211 T/CUMM (130-400); Red Blood Count 4.22 MC/CUMM (3.8-5.5); Red Cell Distribution Width 15.3 % (9.3-17.3); White Blood Count 17.8 T/CUMM (4-12)
[2021-03-19 05:07] LABS: Calcium 7.7 MG/DL (8.5-10.1); Osmolality,Calculated 316.7 MOS/KG (273-304); Potassium 5.1 MMOL/L (3.5-5.1)
[2021-03-19 05:21] LABS: Hypochromasia 1+; Lymphocytes 2 % (20-55); Segmented Neutrophils 94 % (50-85); Total Cells Counted 100
[2021-03-19 05:22] LABS: Microcytosis Slight; Platelet Estimate Normal
[2021-03-19] MEDS: ASPIRIN CHEW 81 MG TABLET PO SCH (08:55)
[2021-03-19] MEDS: FAMOTIDINE 20 MG/2 ML VIAL IV SCH (09:00)
[2021-03-19] MEDS: INSULIN GLARGINE 100 UNIT/ML SUBCUT SCH (09:01)
[2021-03-20 04:34] LABS: ABG Base Excess -7.7 MMOL/L (-2.5-2.5); ABG HCO3 18.3 MMOL/L (20-26); ABG Oxygen Saturation 97.2 % (95-100); ABG PH 7.279 (7.35-7.45); ABG TCO2 16.7 MMOL/L (23-27)
[2021-03-20 05:06] LABS: Basophils # 0.1 10*3/uL (0.0-0.2); Basophils % 0.3 % (0.0-0.8); Eosinophils # 0.1 10*3/uL (0.0-0.87); Eosinophils % 0.9 % (0.00-10.9); Hematocrit 37.2 VOL% (42.0-52.0); Hemoglobin 12.2 GM/DL (14.0-18.0); Immature Granulocytes % 0.9 %; Immature Granulocytes Absolute 0.14 #; Lymphocytes # 0.8 10*3/uL (1.4-4.0); Lymphocytes % 5.1 % (21.2-54.2); Mean Corpuscular HGB Conc 32.8 GM/DL (32-36); Mean Corpuscular Volume 88.6 FL (87-102); Mean Platelet Volume 11.4 FL (9.6-12.0); Monocytes % 6.3 % (1.7-12.7); Neutrophils % 86.5 % (38.7-73.9); Platelet Count 259 T/CUMM (130-400); Red Cell Distribution Width 15.2 % (9.3-17.3); White Blood Count 15.6 T/CUMM (4-12)
[2021-03-20 05:22] LABS: Osmolality,Calculated 329.4 MOS/KG (273-304); Potassium 5.4 MMOL/L (3.5-5.1)
[2021-03-20] MEDS: INSULIN LISPRO 100 UNIT/ML SUBCUT SCH ×5 (05:31→23:56)
[2021-03-20] MEDS: ASPIRIN CHEW 81 MG TABLET PO SCH (08:11)
[2021-03-20] MEDS: INSULIN GLARGINE 100 UNIT/ML SUBCUT SCH (08:11)
[2021-03-20] MEDS: FAMOTIDINE 20 MG/2 ML VIAL IV SCH (08:11)
[2021-03-20] MEDS ORDERED: VANCOMYCIN INJ 1,250 MG in SODIUM CHLORIDE 0.9% 250 ML IV ONE (17:00)
[2021-03-20] MEDS: ACETAMINOPHEN 325 MG TABLET PO PRN (23:56)
[2021-03-21 03:34] LABS: Basophils # 0.1 10*3/uL (0.0-0.2); Basophils % 0.4 % (0.0-0.8); Eosinophils # 0.2 10*3/uL (0.0-0.87); Hematocrit 35.3 VOL% (42.0-52.0); Hemoglobin 11.5 GM/DL (14.0-18.0); Immature Granulocytes % 1.2 %; Lymphocytes # 0.9 10*3/uL (1.4-4.0); Lymphocytes % 5.8 % (21.2-54.2); Mean Corpuscular HGB Conc 32.6 GM/DL (32-36); Mean Corpuscular Volume 89.1 FL (87-102); Mean Platelet Volume 10.9 FL (9.6-12.0); Monocytes % 5.7 % (1.7-12.7); Neutrophils % 85.9 % (38.7-73.9); Platelet Count 248 T/CUMM (130-400); Red Blood Count 3.96 MC/CUMM (3.8-5.5); White Blood Count 16.3 T/CUMM (4-12)
[2021-03-21 03:52] LABS: Osmolality,Calculated 321.7 MOS/KG (273-304); Potassium 5.1 MMOL/L (3.5-5.1)
[2021-03-21 04:55] LABS: ABG Base Excess -7.3 MMOL/L (-2.5-2.5); ABG HCO3 18.4 MMOL/L (20-26); ABG Oxygen Saturation 96.4 % (95-100); ABG PCO2 37.7 MM HG (35-48); ABG PH 7.306 (7.35-7.45); ABG PO2 94.4 MM HG (80-95); ABG TCO2 19.5 MMOL/L (23-27); Allen Test Positive; Pt O2 Delivery Device Ventilator
[2021-03-21] MEDS: INSULIN LISPRO 100 UNIT/ML SUBCUT SCH ×2 (05:54→12:36)
[2021-03-21] MEDS: INSULIN GLARGINE 100 UNIT/ML SUBCUT SCH (08:00)
[2021-03-21] MEDS: FAMOTIDINE 20 MG/2 ML VIAL IV SCH (08:00)
[2021-03-21] MEDS: ASPIRIN CHEW 81 MG TABLET PO SCH (08:00)
[2021-03-21] MEDS ORDERED: LORazepam 2 MG/1 ML VIAL IV PRN ×2 (11:56)
[2021-03-21] MEDS ORDERED: MORPHINE 4 MG/1 ML VIAL IV PRN ×2 (11:56→15:49)
[2021-03-21 14:01] VITALS: BP 130/69
== END 2021-03-21 15:56 | disposition expired | DRG 870 ==
LOC: EDBD → EDUNIT# → N.ED 16:53 → N.EDINP 19:06 → SUATTDRO 19:06 → N.ICU 20:34
PROVIDERS: ADMIT Internal Medicine; ATTEND Internal Medicine